=== PATIENT | male | born 1960 | race Caucasian/White ===

== ENCOUNTER 2019-07-09 07:53 | Day surgery (SDC) | payer BC ==
--- NOTE | 2019-07-08 13:07 | CRLCT ---
INDICATION: Perianal abscess. TECHNIQUE: CT abdomen and pelvis acquired with 100 cc Isovue IV contrast. COMPARISON: None. FINDINGS: Tiny low-attenuation lesion in the right hepatic lobe most likely represents a benign cyst or hemangioma. Additional benign cyst in the inferior right hepatic lobe. The gallbladder, spleen, pancreas, and adrenal glands are negative. Right renal cysts. No hydronephrosis. No urinary calculi. Postoperative changes prostatectomy and pelvic lymphadenectomy. There is a 4.0 x 2.6 cm peripherally enhancing fluid collection within the left perineum posteriorly (series 2, image 147). Surrounding inflammatory fat stranding. No definite fistulous connection to the anal canal is seen, however MRI would be more sensitive. Findings are compatible with a perineal abscess. 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 The colon is also not a typical distribution. No bowel dilation. No intraperitoneal free air or fluid. Wide-mouth ventral hernia containing multiple loops of nonobstructed bowel. There are asymmetrically enlarged left inguinal lymph nodes measuring 1.2 cm in short axis (series 2 images [id number]). These may be reactive but are indeterminate. The lung bases are clear. IMPRESSION: 1. 4.0 x 2.6 cm left perineal abscess. No definite fistulous connection is identified, however MRI would be more sensitive. 2. Asymmetrically enlarged left inguinal lymph nodes may be reactive but are technically indeterminate. 3. Incidentally noted small bowel malrotation. No evidence of obstruction. 4. No other acute findings in the abdomen or pelvis. Please note that all CT scans at this facility use dose modulation, iterative reconstruction, and/or weight-based dosing when appropriate to reduce radiation dose to as low as reasonably achievable. Dictated by Bree Marroquin MD @ Jul 08 2019 12:51PM Signed by Dr. Bree Marroquin @ Jul 08 2019 1:06PM
[~2019-07-09 07:53] MED LIST: Iopamidol 612 MG/ML 100 ML Bottle IV SCH; Iopamidol 612 MG/ML 30 ML SDV PO ONE; Sodium Chloride 0.9% 10 ML Syringe FLUSH ONE
[2019-07-09] MEDS ORDERED: Acetaminophen 500 MG Tab PO ONE ×2 (07:59→08:00)
[2019-07-09] MEDS ORDERED: Meropenem 500 MG in Sodium Chloride 0.9% 50 ML IV ONE (08:30)
[2019-07-09] MEDS ORDERED: Succinylcholine 200 MG/10 ML MDV ONE (08:30)
[2019-07-09] MEDS ORDERED: Propofol 200 MG/20 ML SDV ONE ×2 (08:30→10:50)
[2019-07-09] MEDS ORDERED: fentaNYL 250 MCG/5 ML SDV ONE (08:30)
[2019-07-09] MEDS ORDERED: Dexamethasone 4 MG/ML SDV ONE (08:30)
[2019-07-09] MEDS ORDERED: Dextrose 5%-Lactated Ringers 1,000 ML IV SCH (08:30)
[2019-07-09] MEDS ORDERED: Rocuronium 50 MG/5 ML Vial ONE (08:30)
[2019-07-09] MEDS ORDERED: Ondansetron 4 MG/2 ML SDV ONE (08:30)
[2019-07-09] MEDS ORDERED: Bupivacaine 0.5%/EPINEPHrine 1:200,000 50 ML MDV ONE (08:47)
[2019-07-09] MEDS: Dextrose 5%-Lactated Ringers 1,000 ML IV SCH ×2 (08:58→13:31)
[2019-07-09] MEDS ORDERED: Hydrogen Peroxide 3% Top Soln 240 ML Bottle ONE (10:49)
[2019-07-09] MEDS: Meropenem 500 MG in Sodium Chloride 0.9% 50 ML IV ONE ×2 (11:19→12:05)
[2019-07-09] MEDS ORDERED: Acetaminophen/HYDROcodone 325-5 MG Tab PO PRN ×2 (12:33→12:34)
[2019-07-09] MEDS ORDERED: Acetaminophen 500 MG Tab PO PRN (12:35)
[2019-07-09] MEDS ORDERED: Ondansetron 4 MG/2 ML SDV IVPUSH PRN (12:36)
[2019-07-09] MEDS: Meropenem 500 MG in Sodium Chloride 0.9% 50 ML IV SCH ×2 (15:23→21:09)
[2019-07-09] MEDS: Lactobacillus Rhamnosus GG (Probiotic) Cap PO SCH (21:09)
[2019-07-10] MEDS: Dextrose 5%-Lactated Ringers 1,000 ML IV SCH (00:48)
[2019-07-10] MEDS: Meropenem 500 MG in Sodium Chloride 0.9% 50 ML IV SCH ×2 (04:06→09:37)
[2019-07-10] MEDS: Lactobacillus Rhamnosus GG (Probiotic) Cap PO SCH (09:34)
--- NOTE | 2019-07-12 08:15 | DISCH ---
FINAL DIAGNOSES: 1. Perirectal abscess. 2. History of ulcerative colitis, status post total proctocolectomy with ileoanal anastomosis. 3. History of prostate carcinoma, status post prostatectomy. OPERATIVE PROCEDURES: Done on 07/09/2019, incision and drainage of perirectal abscess. HOSPITAL COURSE: This is a 58-year-old male, presenting with perirectal abscess around mid week. The patient is status post a total proctocolectomy with ileoanal anastomosis for ulcerative colitis around 15 years ago. It is not clear whether or not he has any of the dentate line present, but given this history, a CT scan was obtained yesterday, which showed what appeared to be otherwise uncomplicated perirectal abscess, no signs of fistula, with extension up higher into the pelvis. The patient underwent incision and drainage of the abscess on 07/09/2019, and the wound looks clean today. He still has some chronic cellulitis. Gram Stain shows gram-negative rods, which will likely be sensitive to the Augmentin that he was started on 2 days ago, and he will be finishing a 5-day course of that. His is a longstanding OR nurse and was instructed in terms of wound care. The patient will be following up with Dr. Brewster in [facility] on 07/21/2019. Of note, at the time of surgery, there was no evidence of any fistula.
--- NOTE | 2019-07-15 08:39 | OR ---
DATE OF PROCEDURE: 07/09/2019 SURGEON: Hola Brewster MD PREOPERATIVE DIAGNOSIS: Perirectal abscess. POSTOPERATIVE DIAGNOSIS: Perirectal abscess. OPERATIVE PROCEDURE: Incision and drainage of perirectal/ischiorectal abscess ([id number]). ANESTHESIA: General. INDICATION FOR PROCEDURE: A 58-year-old presenting with a perirectal abscess. His history includes previous total proctocolectomy with ileoanal anastomosis. Therefore, with this somewhat more complicated history, a CT scan was obtained yesterday, which shows what appears to be a perirectal abscess extending slightly up toward the ischium and little higher along the area that would have been occupied by the rectum. He is to have this drained. If a fistula is identified and it is low-lying, we would consider some degree of a fistulotomy versus a seton placement. Any of his anal sphincter function, however, will be fairly problematic due to him having very frequent loose stools related to the total proctocolectomy. Potential risks per se were reviewed including bleeding, infection, possible problems with fecal incontinence, and such were all gone over, and the patient wishes to proceed. DETAILS OF PROCEDURE: The patient was taken to the operating room and placed in a supine position. After general endotracheal anesthesia was induced, he was converted to a lithotomy position. The perianal area was prepped and draped. The abscess was located left of the anal canal and very slightly posterior to the midline. An elliptical incision was made over this with removal of some overlying skin, and the abscess cavity was entered. Cultures were obtained and some loculations were broken up. A portion of the abscess wall was also sent for histologic evaluation in addition to the ellipse of skin. At that point, there was not any obvious fistula present. The patient then had some peroxide injected into the wound, sealing the skin around the area of injection, and with the speculum placed in the rectum, no evident fistula was seen by that means as well. At this point, hemostasis was obtained with electrocautery. The wound was packed with iodoform gauze and anesthetized with some 0.5% Marcaine. The patient was taken to the recovery room in a satisfactory condition. There were no evident complications. Hola Brewster MD /[id number]
== END 2019-07-10 11:10 | disposition home or self-care (01) ==
LOC: JP.SDS 07:53 → JP.MS 11:15 → JP.SDS 07-10 11:10
PROVIDERS: ATTEND Surgery
DX: K61.1 Rectal abscess (principal); E78.5 Hyperlipidemia, unspecified; Z90.49 Acquired absence of other specified parts of digestive tract; Z90.79 Acquired absence of other genital organ(s); Z87.19 Personal history of other diseases of the digestive system; Z85.46 Personal history of malignant neoplasm of prostate
CPT/HCPCS: 74177; 87070; 87075; 87077; 87205; 88304; 94762; A9270-GY; J0330; J1100; J2185; J2405; J2704; J3010; J3490; J7030; J7042; J7050; Q9967

== ENCOUNTER 2020-12-13 05:33 | Day surgery (SDC) | payer BC ==
[2020-12-13] MEDS: Nozin Nasal Sanitizer NASBOTH SCH ×3 (05:55→21:08)
[2020-12-13] MEDS ORDERED: Lactated Ringers 1,000 ML IV SCH (06:30)
[2020-12-13] MEDS ORDERED: Povidone-Iodine 10% Soln 118.25 ML Bottle ONE (06:36)
[2020-12-13] MEDS ORDERED: ceFAZolin 2 GM in Premix Bag 1 BAG IV ONE (06:45)
[2020-12-13] MEDS ORDERED: Propofol 200 MG/20 ML SDV ONE ×3 (07:14→08:38)
[2020-12-13] MEDS ORDERED: Midazolam 1 MG/ML 2 ML SDV ONE (07:14)
[2020-12-13] MEDS ORDERED: fentaNYL 100 MCG/2 ML SDV ONE (07:14)
[2020-12-13] MEDS ORDERED: Lactated Ringers 1,000 ML ONE (08:35)
[2020-12-13] MEDS ORDERED: Ondansetron 4 MG/2 ML SDV IVPUSH PRN (08:59)
[2020-12-13] MEDS ORDERED: Acetaminophen/HYDROcodone 325-5 MG Tab PO PRN (08:59)
[2020-12-13] MEDS ORDERED: Magnesium Hydroxide 400 MG/5 ML Susp 30 ML Cup PO PRN (08:59)
[2020-12-13] MEDS ORDERED: Acetaminophen/oxyCODONE 325-5 MG Tab PO PRN (08:59)
[2020-12-13] MEDS ORDERED: Morphine 2 MG/ML SYRINGE IVPUSH PRN (08:59)
[2020-12-13] MEDS ORDERED: Nozin Nasal Sanitizer NASBOTH SCH (09:00)
[2020-12-13] MEDS ORDERED: Sodium Chloride 0.9% 1,000 ML IV SCH (09:00)
--- NOTE | 2020-12-13 09:42 | CR ---
Knee 1V or 2V Rt CLINICAL HISTORY: Postop FINDINGS: Patient is status post the right medial hemiarthroplasty. Components appear well seated. There is intra-articular and subcutaneous air. Impression: Postop medial hemiarthroplasty
[2020-12-13] MEDS: Docusate Sodium 100 MG Cap PO SCH ×2 (11:10→21:09)
[2020-12-13] MEDS: Ketorolac 30 MG/ML SDV IVPUSH SCH ×2 (11:51→21:08)
[2020-12-13] MEDS: ceFAZolin 1 GM in Premix Bag 1 BAG IV SCH ×2 (14:08→21:09)
[2020-12-13] MEDS: Acetaminophen/oxyCODONE 325-5 MG Tab PO PRN ×2 (17:55→22:49)
[2020-12-14] MEDS: Ketorolac 30 MG/ML SDV IVPUSH SCH (03:39)
[2020-12-14] MEDS: ceFAZolin 1 GM in Premix Bag 1 BAG IV SCH (05:19)
[2020-12-14] MEDS: Docusate Sodium 100 MG Cap PO SCH (08:04)
[2020-12-14] MEDS: Acetaminophen/oxyCODONE 325-5 MG Tab PO PRN (08:07)
[2020-12-14] MEDS: Nozin Nasal Sanitizer NASBOTH SCH (08:07)
--- NOTE | 2020-12-14 10:15 | PCM.DCSUM1 ---
Discharge Summary - Hospital Course Brief History: Patient s/p R medial compartment partial knee replacement Diagnosis: Stroke: No Modified Filiberto Scale: No Symptoms at All Modified Spink Scale Score: 0 - Discharge Data Discharge Date: 12/14/20 Discharge Disposition: Home, Self-Care 01 Condition: Good - Referral to Home Health Date of Face to Face Encounter: 12/14/20 Primary Care Physician: PCP None - Discharge Diagnosis/Problem(s) (1) Status post right unicompartmental knee replacement SNOMED Code(s): 447468017, [id number], [id number], [id number] ICD Code: Z96.651 - PRESENCE OF RIGHT ARTIFICIAL KNEE JOINT Status: Acute - Patient Summary/Data Operative Procedure(s) Performed: Right medial compartment partial knee replacement Consults: Consultations 12/13/20 08:59 Consult to Case Management/[employer] Dis[employer] [CONS] Routine Comment: Physician Instructions: Service(s) to be Consulted: Case Management Reason for Consult: Plan for Discharge PT Evaluation and Treatment [CONS] Routine Please Evaluate and Treat. PT Reason for Consult: Post op Ortho Surgery This query below is only for informational purposes and is not editable. PT Evaluation and Treatment [CONS] Routine Please Evaluate and Treat. PT Reason for Consult: Post op Ortho Surgery Knee Pending Discharge: Yes, 1- 2 days Special Instructions: Schedule first outpatient PT appointment in 3-5 day post discharge. This query below is only for informational purposes and is not editable. Hospital Course: Patient is a pleasant 60 y/o male, POD#1, s/p R medial compartment knee partial replacement. Patient tolerated surgery well with no complications. Patient's pain has been well managed postoperatively with PO medications. Tolerating regular diet well, no concerns with nausea or emesis. Mild hypertension this morning, otherwise vitals have been within normal limits. Patient was ambulating the evening of surgery with FWW. Participated in physical therapy this morning and ambulated well with FWW. Feels safe for discharge to home; good support at home from spouse. Agreeable to outpatient physical therapy. Patient reports no concerns at this time. - Patient Instructions Diet: Usual Diet as Tolerated Activity: Apply Ice, Full Weight Bearing Showering/Bathing: Shower in AM Wound/Incision Care: Keep Operative Site/Wound Site Clean and Dry Notify Provider of: Fever, Increased Pain, Swelling and Redness, Drainage Other/Special Instructions: Instructed patient to take 1 aspirin BID until 2 week follow up apt with provider for DVT/VTE Prophylaxis. - Discharge Plan *PRESCRIPTION DRUG MONITORING PROGRAM REVIEWED*: Yes *COPY OF PRESCRIPTION DRUG MONITORING REPORT IN PATIENT LAURE: Not Applicable Prescriptions/Med Rec: Acetaminophen/oxyCODONE [Percocet 325-5 MG] 1 - 2 each PO Q6HR PRN 7 Days #40 tab PRN Reason: Pain Home Medications: Home Meds Acetaminophen/oxyCODONE [Percocet 325-5 MG] 1 - 2 each PO Q6HR PRN 7 Days #40 tab 12/14/20 [Rx] Aspirin 325 mg PO BID 12/14/20 [History] Oxygen Therapy Mode: Room Air Patient Handouts: Incision Care, Adult, [id number] Referrals: Charito Olmedo, PT [Physical Therapist] - 12/15/20 8:00 am (Please arrive 15 minutes early to register for your appointment and complete your paperwork prior to your appointment.) Jose Daniel Borrero MD [Physician] - 12/26/20 10:30 am (Please arrive 15 minutes early to register for appointment.) - Discharge Summary/Plan Comment DC Time >30 min.: No Discharge Summary/Plan Comment: Patient safe to discharge to home today. Will complete outpatient physical therapy. Education provided on dressing changes and compression wraps. Patient agreeable to taking 1 aspirin BID for DVT/VTE prophylaxis until follow up apt. Pain medication sent to pharmacy. Follow up apt scheduled with ortho clinic for 12/26/20. Advised to call if any concerns or questions arise before scheduled apt. Patient agreeable and expressed understanding of this plan. - General Info Date of Service: 12/13/20 Functional Status: Reports: Pain Controlled, Tolerating Diet, Ambulating, Urinating - Review of Systems General: Reports: No Symptoms HEENT: Reports: No Symptoms Pulmonary: Reports: No Symptoms Cardiovascular: Reports: No Symptoms Gastrointestinal: Reports: No Symptoms Genitourinary: Reports: No Symptoms Musculoskeletal: Reports: Leg Pain (right ), Joint Pain (right knee ), Joint Swelling (right knee ) Skin: Reports: No Symptoms Neurological: Reports: No Symptoms Psychiatric: Reports: No Symptoms - Patient Data Vitals - Most Recent: Last Vital Signs Temp 98.7 F 12/14/20 07:08 Pulse 65 12/14/20 07:08 Resp 16 12/14/20 07:08 BP 146/73 H 12/14/20 07:08 Pulse Ox 97 12/14/20 07:08 Weight - Most Recent: 172 lb 1.6 oz I&O - Last 24 hours: Intake & Output 12/13/20 12/14/20 12/14/20 22:59 06:59 14:59 Intake Total 2620 418 Balance 2620 418 Med Orders - Current: Current Medications Hydrocodone Bitart/Acetaminophen ([place] 325-5 Mg) 2 tab PO Q4H PRN PRN Reason: Pain (mild 1-3) Bandage/Support Products ( 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) 1 applic NASBOTH BID [facility] Last Admin: 12/14/20 08:07 Dose: 1 applic Documented by: Docusate Sodium (Colace) 100 mg PO BID [facility] Last Admin: 12/14/20 08:04 Dose: Not Given Documented by: Ketorolac Tromethamine (Toradol) 30 mg IVPUSH Q8H [facility] Stop: 12/14/20 12:01 Last Admin: 12/14/20 03:39 Dose: Not Given Documented by: Magnesium Hydroxide (Milk Of Magnesia) 30 ml PO BID PRN PRN Reason: Constipation Morphine Sulfate (Morphine) 1 mg IVPUSH Q1H PRN PRN Reason: Breakthrough Pain Ondansetron HCl (Zofran) 4 mg IVPUSH Q6H PRN PRN Reason: Nausea/Vomiting Oxycodone/Acetaminophen (Percocet 325-5 Mg) 1 - 2 tab PO Q4H PRN PRN Reason: Pain (moderate 4-6) Last Admin: 12/14/20 08:07 Dose: 1 tab Documented by: Discontinued Medications Fentanyl (Sublimaze) Confirm Administered Dose 100 mcg .ROUTE .STK-MED ONE Stop: 12/13/20 07:15 Lactated Ringer's (Ringers, Lactated) 1,000 mls @ 75 mls/hr IV ASDIRECTED [facility] Last Admin: 12/13/20 05:54 Dose: 75 mls/hr Documented by: Cefazolin Sodium/Dextrose 2 gm (/ Premix) 50 mls @ 100 mls/hr IV ONETIME ONE Stop: 12/13/20 07:14 Last Admin: 12/13/20 07:46 Dose: 100 mls/hr Documented by: Lactated Ringer's (Ringers, Lactated) Confirm Administered Dose 1,000 mls @ as directed .ROUTE .STK-MED ONE Stop: 12/13/20 08:36 Sodium Chloride (Normal Saline) 1,000 mls @ 125 mls/hr IV ASDIRECTED [facility] Last Admin: 12/13/20 15:50 Dose: 125 mls/hr Documented by: Cefazolin Sodium/Dextrose 1 gm (/ Premix) 50 mls @ 200 mls/hr IV Q8H [facility] Stop: 12/14/20 06:14 Last Admin: 12/14/20 05:19 Dose: 200 mls/hr Documented by: Midazolam HCl (Versed 1 Mg/Ml) Confirm Administered Dose 2 mg .ROUTE .STK-MED ONE Stop: 12/13/20 07:15 Oxycodone/Acetaminophen (Percocet 325-5 Mg) 2 tab PO Q4H PRN PRN Reason: Pain (moderate 4-6) Last Admin: 12/13/20 10:26 Dose: 2 tab Documented by: Povidone Iodine (Betadine 10% Soln) Confirm Administered Dose 1 ml .ROUTE .STK- MED ONE Stop: 12/13/20 06:37 Last Admin: 12/13/20 08:15 Dose: 30 ml Documented by: Propofol (Diprivan 20 Ml) Confirm Administered Dose 200 mg .ROUTE .STK-MED ONE Stop: 12/13/20 07:15 Propofol (Diprivan 20 Ml) Confirm Administered Dose 200 mg .ROUTE .STK-MED ONE Stop: 12/13/20 08:12 Propofol (Diprivan 20 Ml) Confirm Administered Dose 200 mg .ROUTE .STK-MED ONE Stop: 12/13/20 08:39 - Exam General: Reports: Alert, Oriented, Cooperative, No Acute Distress Extremities: Joint Swelling (right knee ), Leg Pain (right), Limited Range of Motion (right) Skin: Reports: Dry, Intact Wound/Incisions: Reports: Dressing Dry and Intact, No Drainage Neurological: Reports: No New Focal Deficit Psy/Mental Status: Reports: Alert, Normal Affect, Normal Mood
--- NOTE | 2020-12-25 19:39 | OR ---
DATE OF PROCEDURE: 12/13/2020 SURGEON: Jose Daniel Borrero MD PREOPERATIVE DIAGNOSIS: Osteoarthritis, right knee, medial compartment. POSTOPERATIVE DIAGNOSIS: Osteoarthritis, right knee, medial compartment. PROCEDURE: Right medial unicompartmental arthroplasty using [employer] ZUK components with a size D femur, 4 tibia, and 8 mm polyethylene. ENDOCRINOLOGY NURSE: ÁNGEL Buck ANESTHESIA: Spinal with sedation. INDICATIONS: Denny is a 60-year-old gentleman with a history of progressive pain in the right knee, which has been getting worse over the last few years. He has tried conservative measures including nonsteroidal anti-inflammatories, activity modification, and injections. Examination and x-ray are consistent with medial joint space collapse, peripheral osteophytes, and osteoarthritic changes of the medial compartment with well- preserved patellofemoral and lateral compartment. Now presents for a medial unicompartmental arthroplasty. Risks, benefits, and potential complications of the procedure were discussed. DESCRIPTION OF PROCEDURE: After adequate anesthesia was obtained, the patient was placed supine with the tourniquet about the right upper thigh. Right leg was prepped and draped in a sterile fashion. Leg was exsanguinated and tourniquet inflated to 300 mmHg pressure. Anterior incision was made just slightly medial of midline, carried down through the subcutaneous tissues from the superior pole of the patella to just below the joint line. Medial parapatellar arthrotomy was performed up to the insertion of the VMO. Mild effusion was present. Anterior horn of the medial meniscus was excised. The knee was flexed, and the joint surfaces examined, which shows extensive degenerative change with complete loss of articular cartilage on the femoral condyle. Anterior lip of the tibia was resected. Knee was extended and the extramedullary alignment jig was placed. This was aligned and secured to the tibia and femur. Distal femoral cut was then made. This portion of the cutting jig was removed. The knee was flexed, and the proximal tibia was then resected. Remaining portions of the guide were removed and the medial meniscus was excised. The femur is sized to a D component. Distal femoral cutting jig was secured, PEG holes were drilled, and remaining cuts were made. Tibia is sized to a number 4 component. Number 4 base plate is tapped into position, secured with small pin, and peg holes were drilled. Femoral trial was placed, and the knee was then taken through range of motion with an 8 mm insert. This provided excellent balance in flexion and extension with a 2 mm gap. The trials were removed. The knee was thoroughly irrigated with pulse lavage. Bone surfaces were dried. Components were cemented in place. Excess cement was removed, and the knee was held in full extension with an 8 mm trial and the 2 mm spacer as the cement cured. Knee was again taken through range of motion, found to have very good balance with a 2 mm gap in both flexion and extension. Trial was removed, the knee was irrigated, and the final polyethylene was snapped into position. Knee was then irrigated with a dilute Betadine solution followed by pulse lavage. The knee was then closed with #2 Ethibond in a running fashion. Skin was closed with 2-0 Vicryl and a running 3-0 Monocryl. Steri-Strips were applied. Sterile dressing and a light compressive dressing was placed. The patient tolerated procedure well, there were no complications. Taken from the operating room in stable condition. Jose Daniel Borrero MD /[id number] MTDD
== END 2020-12-14 11:32 | disposition home or self-care (01) ==
LOC: JP.SDS 05:33 → JP.2SS 09:50 → JP.SDS 12-14 11:32
PROVIDERS: ATTEND Specialist
DX: M17.11 Unilateral primary osteoarthritis, right knee (principal); E78.49 Other hyperlipidemia; G89.29 Other chronic pain; Z01.812 Encounter for preprocedural laboratory examination; Z20.822 Contact with and (suspected) exposure to COVID-19; Z79.899 Other long term (current) drug therapy
CPT/HCPCS: 27446; 73560; 97110; 97161; 97530; 97535; A9270; C1713; C1776; J0690; J1885; J2250; J2704; J3010; J7030; J7120